=== PATIENT | male | born 1955 | race Caucasian/White ===

== ENCOUNTER 2016-12-04 15:34 | Emergency (ER) | payer MEDICARE, OTHER ==
[~2016-12-04] VITALS: Wt 90.5 kg
[~2016-12-04 15:34] MED LIST: NO MEDS TAKEN
[2016-12-04] MEDS ORDERED: DIPHTH/TET/ACEL PERTUSS (ADULT) 0.5 ML VIAL IM* ONE (16:00)
--- NOTE | 2016-12-04 16:09 | ERD ---
ER Documentation Chief Complaint Date/Time DATE: 12/04/16 TIME: 16:00 Chief Complaint RIGHT HAND LAC. HAPPENED 2 WEEKS AGO HPI Patient is a 61-year-old male who presents to the emergency department with a laceration to the volar aspect of his right wrist which occurred over 2 weeks ago. Patient states that he was walking when he tripped and grabbed onto a metal street sign. The metal street sign cut his right wrist. Patient denies any head injury, nausea, vomiting, acute confusion, excessive sleepiness or loss of consciousness. Patient does recall full events of the incident. Patient denies any fevers or chills. Patient has normal range of motion of his right hand and wrist. Patient is right-hand dominant. Patient has been putting purple antiseptic from [facility] into the wound however the wound is not healing. Patient is unsure when his last tetanus shot was. ROS All systems reviewed and are negative except as per history of present illness. Medications Home Meds Reported Medications [No Meds Taken] No Conflict Check 08/07/10 Allergies Allergies: Coded Allergies: No Known Drug Allergy (Verified Allergy, Mild, 08/07/10) PMhx/Soc Medical and Surgical Hx: pt denies Medical Hx, pt denies Surgical Hx History of Surgery: No Anesthesia Reaction: No Hx Neurological Disorder: No Hx Respiratory Disorders: No Hx Cardiac Disorders: No Hx Psychiatric Problems: No Hx Miscellaneous Medical Probl: No Hx Alcohol Use: Yes (occassionally) Hx Substance Use: No Hx Tobacco Use: No Smoking Status: Never smoker Physical Exam Vitals Vital Signs Date Time Temp Pulse Resp B/P Pulse Ox O2 Delivery O2 Flow Rate FiO2 12/04/16 16:32 98.3 77 17 134/82 97 Room Air 12/04/16 15:36 98.1 66 20 161/87 97 Physical Exam GENERAL: Well-developed, well-nourished male. Appears in no acute distress. Speaking in full sentences HEAD: Normocephalic, atraumatic. EYES: Pupils are equally reactive bilaterally. EOMs grossly intact. No conjunctival erythema. ENT: Moist mucous membranes. No uvula deviation. No kissing tonsils. NECK: Supple. No meningismus. Normal range of motion of the neck. LUNG: Clear to auscultation bilaterally. No rhonchi, wheezing, rales or coarse breath sounds. HEART: Regular rate and rhythm. No murmurs, rubs or gallops. EXTREMITIES: Equal pulses bilaterally. No peripheral clubbing, cyanosis or edema. No unilateral leg swelling. NEUROLOGIC: Alert and oriented. Moving all four extremities without any difficulty. Normal speech. Steady gait. SKIN: Normal color. Warm and dry. 4 cm linear, open wound noted on the volar aspect of the right wrist. Purple antiseptic material noted in the wound. No active bleeding or discharge. No surrounding erythema or swelling. RIGHT HAND: No obvious deformity, erythema, ecchymosis or swelling. Laceration as noted above. Range of motion of the wrist, all fingers. Nontender palpation of the forearm, wrist, hand. Sensation intact to light touch. Neurovascularly intact. (Able to give thumbs up, make an ok sign, cross digits 2 and 3, thumb to pinky opposition. 2+ RP.) No snuffbox tenderness. Results 24 hrs Current Medications Medications (Trade) Dose Ordered Sig/Mila Route PRN Reason Start Time Stop Time Status Last Admin Dose Admin Diphtheria/ Tetanus/Acell Pertussis (Adacel) 0.5 ml ONCE ONCE IM* 12/04/16 16:00 12/04/16 16:01 DC 12/04/16 16:02 Procedures/MDM MEDICAL DECISION MAKING: This is a 61-year-old male who presents with a laceration to his right wrist. The laceration occurred 2 weeks ago. Patient denied any fevers or chills. Vital signs were reviewed. Patient was afebrile. She was not hypoxic. Given that the laceration occurred over 48 hours ago, there is no indication for suture repair at this time. The wound was cleansed thoroughly and closed with Steri-Strips. Tetanus vaccination was given today. At this time, the patient' s presentation is most consistent with laceration. I explained to the patient that the laceration will likely heal with secondary intention. Steri-Strips were placed good wound approximation. Low suspicion for tendon injury, ligament injury, retained foreign body, cellulitis, abscess formation, deep space infection. DISCHARGE: At this time, the patient is stable for discharge and outpatient management. Post-procedural wound care was discussed with the patient. I have instructed the patient to promptly return to the ER for any new or worsening symptoms including increasing pain, fever, warmth, redness or swelling. The patient and/ or family expressed understanding of and agreement with this plan. All questions were answered. Home care instructions were provided. Patient's blood pressure was elevated (>120/80) but appears stable without evidence of hypertensive emergency, hypertensive urgency or end-organ failure. I had discussion with the patient about the risks of hypertension. I have advised the patient to follow up with his/her primary care physician for outpatient monitoring and treatment for hypertension in 2-3 days. I have instructed the patient to return to the ER for any new or worsening symptoms including chest pain, shortness of breath, headache, blurred vision, confusion, nausea, vomiting or LOC. Departure Diagnosis: Primary Impression: Laceration Condition: Stable Patient Instructions: Laceration, Hand Referrals: VERONICA MORGAN (PCP) [facility] YOU HAVE RECEIVED A MEDICAL SCREENING EXAM AND THE RESULTS INDICATE THAT YOU DO NOT HAVE A CONDITION THAT REQUIRES URGENT TREATMENT IN THE EMERGENCY DEPARTMENT. FURTHER EVALUATION AND TREATMENT OF YOUR CONDITION CAN WAIT UNTIL YOU ARE SEEN IN YOUR DOCTORS OFFICE WITHIN THE NEXT 1-2 DAYS. IT IS YOUR RESPONSIBILITY TO MAKE AN APPOINTMENT FOR FOLOW-UP CARE. IF YOU HAVE A PRIMARY DOCTOR --you should call your primary doctor and schedule an appointment IF YOU DO NOT HAVE A PRIMARY DOCTOR YOU CAN CALL OUR PHYSICIAN REFERRAL HOTLINE AT IF YOU CAN NOT AFFORD TO SEE A PHYSICIAN YOU CAN CHOSE FROM THE FOLLOWING [facility] [address] [facility]. [facility] [address] [facility]. [facility] [address] [facility] [address] [facility] [address] [facility]. [facility]. [address] [facility]. [facility] YOU HAVE RECEIVED A MEDICAL SCREENING EXAM AND THE RESULTS INDICATE THAT YOU DO NOT HAVE A CONDITION THAT REQUIRES URGENT TREATMENT IN THE EMERGENCY DEPARTMENT. FURTHER EVALUATION AND TREATMENT OF YOUR CONDITION CAN WAIT UNTIL YOU ARE SEEN IN YOUR DOCTORS OFFICE WITHIN THE NEXT 1-2 DAYS. IT IS YOUR RESPONSIBILITY TO MAKE AN APPOINTMENT FOR FOLOW-UP CARE. IF YOU HAVE A PRIMARY DOCTOR --you should call your primary doctor and schedule and appointment IF YOU DO NOT HAVE A PRIMARY DOCTOR YOU CAN CALL OUR PHYSICIAN REFERRAL HOTLINE AT . IF YOU CAN NOT AFFORD TO SEE A PHYSICIAN YOU CAN CHOSE FROM THE FOLLOWING [facility] INSTITUTIONS: [facility] [address] [place] [address] [facility] [address] [place] [address] [facility] + [facility] [address] [place] [address] Additional Instructions: Call your primary care doctor TOMORROW for an appointment during the next 1-2 days.See the doctor sooner or return here if your condition worsens before your appointment time. Return for any new or worsening symptoms including redness, swelling, warmth, fevers, chills. ALTA DUARTE PA-C Dec 04, 2016 16:09
[2016-12-04 16:32] VITALS: BP 134/82; PULSE 77; RESP 17; TEMP 98.3
== END 2016-12-04 16:35 | disposition home or self-care (01) ==
LOC: FTE 15:34
DX: S61.411A Laceration without foreign body of right hand, initial encounter (principal); W22.8XXA Striking against or struck by other objects, initial encounter; Y92.9 Unspecified place or not applicable; Z23 Encounter for immunization
CPT/HCPCS: 90471; 90715

== ENCOUNTER 2018-08-16 10:07 | Emergency (ER) | END 2018-08-16 10:34 | disposition home or self-care (01) ==